=== PATIENT | male | born 1970 | race Caucasian/White ===

== ENCOUNTER 2023-12-09 08:08 | Day surgery (SDC) | payer OTHER ==
[~2023-12-09] VITALS: Ht 177.8 cm; Wt 97.4 kg
[~2023-12-09 08:08] MED LIST: BUSP1TAB PO; LOSA50TA28 PO; METO1TAB32 PO; NS 1,000 ML IV ONE; ROSU20TA61 PO; SERT50TA29 PO
[2023-12-09] MEDS ORDERED: propofoL 200 MG/20 ML VIAL As Ordered ONE ×2 (08:58→09:09)
[2023-12-09] MEDS ORDERED: LIDOCAINE 2% 100MG/5ML SDV (FOR ANES.) As Ordered ONE (08:58)
[2023-12-09] MEDS ORDERED: GLYCOPYRROLATE INJ 0.2 MG/ML 2 ML VIAL As Ordered ONE (09:09)
[2023-12-09 09:23] VITALS: TEMP 97.8
[2023-12-09 09:36] VITALS: BP 120/65; O2SAT 99
== END 2023-12-09 09:50 | disposition home or self-care (01) ==
LOC: M OPP 08:08
PROVIDERS: ATTEND Internal Medicine Gastroenterology
DX: Z12.11 Encounter for screening for malignant neoplasm of colon (principal); Z87.891 Personal history of nicotine dependence; Z79.02 Long term (current) use of antithrombotics/antiplatelets; Z79.899 Other long term (current) drug therapy